=== PATIENT | female | born 2000 | race African-American/Black ===

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

== ENCOUNTER 2021-01-04 14:07 | Emergency (ER) | payer OTHER ==
[~2021-01-04] VITALS: Ht 162.6 cm; Wt 46.5 kg
[2021-01-04 14:25] VITALS: BP 112/81
[2021-01-04] MEDS ORDERED: IV NORMAL SALINE 1,000ML 1,000 ML IV ONE (16:00)
[2021-01-04] MEDS ORDERED: ONDANSETRON PF 4 MG/2 ML VIAL. IVP ONE (16:00)
[2021-01-04 16:13] LABS: ALBUMIN 4.9 g/dL (3.4-5.0); ALBUMIN/GLOBULIN RATIO 1.1 (1.0-1.7); POTASSIUM 3.4 mmol/L (3.5-5.1); TOTAL BILIRUBIN 0.7 mg/dL (0.2-1.0); TOTAL PROTEIN 9.3 g/dL (6.4-8.2)
[2021-01-04 16:14] LABS: CALCIUM 9.2 mg/dL (8.5-10.1); GFR 84.7
[2021-01-04 16:20] LABS: BASO % 0 % (0-3); EOS % 0 % (0-3); HEMATOCRIT 45.3 % (36.0-47.0); HEMOGLOBIN 15.1 g/dL (12.0-15.5); LYMPH # 1.9 x10^3/uL (1.0-4.8); LYMPH % 22 % (24-48); MEAN CORPUSCULAR HEMOGLOBIN 31 pg (25-35); MEAN CORPUSCULAR HGB CONC 33 g/dL (31-37); MEAN CORPUSCULAR VOLUME 91 fL (79-100); MONO # 0.7 x10^3/uL (0.0-1.1); MONO % 8 % (0-9); NEUT % 69 % (31-73); PLATELET COUNT 190 x10^3/uL (140-400); RED BLOOD COUNT 4.96 x10^6/uL (3.50-5.40); RED CELL DISTRIBUTION WIDTH 13.6 % (11.5-14.5); WHITE BLOOD COUNT 8.6 x10^3/uL (4.0-11.0)
--- NOTE | 2021-01-04 17:10 | PHYS DOC ---
Past History Past Medical History: No Pertinent History Past Surgical History: No Surgical History Smoking: Cigarettes Alcohol Use: Occasionally Drug Use: Marijuana General Adult EDM: Chief Complaint: NAUSEA/VOMITING/DIARRHEA HPI: HPI: Patient is a 20-year-old female who presents with nausea, vomiting, abdominal pain since Sunday. Patient states "I think I have alcohol poisoning". "I have not been able to keep any food or water down". Patient denies fever. Denies taking anything at home for the pain. Patient denies any medical history. Review of Systems: Review of Systems: Constitutional: Denies fever or chills Eyes: Denies change in visual acuity HENT: Denies nasal congestion or sore throat Respiratory: Denies cough or shortness of breath Cardiovascular: Denies chest pain or edema GI: Reports abdominal pain, nausea, vomiting, denies bloody stools or diarrhea : Denies dysuria Musculoskeletal: Denies back pain or joint pain Integument: Denies rash Neurologic: Denies headache, focal weakness or sensory changes Endocrine: Denies polyuria or polydipsia Lymphatic: Denies swollen glands Psychiatric: Denies depression or anxiety Current Medications: Current Meds: Current Medications Medications (Trade) Dose Ordered Sig/Vernell Start Time Stop Time Status Last Admin Dose Admin Ondansetron HCl (Zofran) 4 mg 1X ONCE 01/04/21 16:00 01/04/21 16:01 DC Sodium Chloride 1,000 ml @ 1,000 mls/hr 1X ONCE 01/04/21 16:00 01/04/21 16:59 DC Allergies: Allergies: Allergies Coded Allergies Type Severity Reaction Last Updated Verified No Known Drug Allergies 01/04/21 No Physical Exam: PE: Constitutional: Well developed, well nourished, no acute distress, non-toxic appearance. [] HENT: Normocephalic, atraumatic, bilateral external ears normal, oropharynx moist, no oral exudates, nose normal. [] Eyes: PERRLA, EOMI, conjunctiva normal, no discharge. [] Neck: Normal range of motion, no tenderness, supple, no stridor. [] Cardiovascular:Heart rate regular rhythm, no murmur [] Lungs & Thorax: Bilateral breath sounds clear to auscultation [] Abdomen: Bowel sounds normal, soft, no tenderness, no masses, no pulsatile masses. [] Skin: Warm, dry, no erythema, no rash. [] Back: No tenderness, no CVA tenderness. [] Extremities: No tenderness, no cyanosis, no clubbing, ROM intact, no edema. [] Neurologic: Alert and oriented X 3, normal motor function, normal sensory function, no focal deficits noted. [] Psychologic: Affect normal, judgement normal, mood normal. [] Current Patient Data: Labs: Laboratory Tests Test 01/04/21 14:30 White Blood Count 8.6 x10^3/uL (4.0-11.0) Red Blood Count 4.96 x10^6/uL (3.50-5.40) Hemoglobin 15.1 g/dL (12.0-15.5) Hematocrit 45.3 % (36.0-47.0) Mean Corpuscular Volume 91 fL (79-100) Mean Corpuscular Hemoglobin 31 pg (25-35) Mean Corpuscular Hemoglobin Concent 33 g/dL (31-37) Red Cell Distribution Width 13.6 % (11.5-14.5) Platelet Count 190 x10^3/uL (140-400) Neutrophils (%) (Auto) 69 % (31-73) Lymphocytes (%) (Auto) 22 % (24-48) L Monocytes (%) (Auto) 8 % (0-9) Eosinophils (%) (Auto) 0 % (0-3) Basophils (%) (Auto) 0 % (0-3) Neutrophils # (Auto) 6.0 x10^3uL (1.8-7.7) Lymphocytes # (Auto) 1.9 x10^3/uL (1.0-4.8) Monocytes # (Auto) 0.7 x10^3/uL (0.0-1.1) Eosinophils # (Auto) 0.0 x10^3/uL (0.0-0.7) Basophils # (Auto) 0.0 x10^3/uL (0.0-0.2) Sodium Level 140 mmol/L (136-145) Potassium Level 3.4 mmol/L (3.5-5.1) L Chloride Level 97 mmol/L (98-107) L Carbon Dioxide Level 34 mmol/L (21-32) H Anion Gap 9 (6-14) Blood Urea Nitrogen 29 mg/dL (7-20) H Creatinine 1.0 mg/dL (0.6-1.0) Estimated GFR (Cockcroft-Gault) 84.7 BUN/Creatinine Ratio 29 (6-20) H Glucose Level 108 mg/dL (70-99) H Calcium Level 9.2 mg/dL (8.5-10.1) Total Bilirubin 0.7 mg/dL (0.2-1.0) Aspartate Amino Transferase (AST) 24 U/L (15-37) Alanine Aminotransferase (ALT) 36 U/L (14-59) Alkaline Phosphatase 74 U/L (46-116) Total Protein 9.3 g/dL (6.4-8.2) H Albumin 4.9 g/dL (3.4-5.0) Albumin/Globulin Ratio 1.1 (1.0-1.7) Lipase 131 U/L (73-393) Vital Signs: Vital Signs Date Time Temp Pulse Resp B/P (MAP) Pulse Ox O2 Delivery O2 Flow Rate FiO2 01/04/21 14:25 98.0 80 16 112/81 (91) 98 EKG: EKG: [] Radiology/Procedures: Radiology/Procedures: []CT ABDOMEN+PELVIS WO History: Reason: ABDOMEN PAIN, NAUSEA, VOMITING / Spl. Instructions: / History: Technique: Noncontrast examination of the abdomen and pelvis. Coronal and sagittal reconstructions were performed. Exposure: One or more of the following individualized dose reduction techniques were utilized for this examination: 1. Automated exposure control 2. Adjustment of the mA and/or kV according to patient size 3. Use of iterative reconstruction technique. Comparison: None Findings: Lower chest: No consolidation or pleural effusion. Abdomen and pelvis: The liver, spleen, adrenal glands, pancreas and gallbladder are unremarkable. Unremarkable noncontrast appearance of the kidneys. No hydronephrosis. No renal calculi. Decompressed urinary bladder. Normal appendix. No evidence of bowel obstruction. No pathologic lymphadenopathy. No ascites. Uterus and ovaries are unremarkable. Bones: No pathologic osseous lesions. Impression: 1. No acute abdominal or pelvic pathology. Electronically signed by: Quang Benz DO (01/04/2021 5:08 PM) [facility] [place] Heart Score: Risk Factors: Risk Factors: DM, Current or recent (<one month) smoker, HTN, HLP, family history of CAD, obesity. Risk Scores: Score 0 - 3: 2.5% MACE over next 6 weeks - Discharge Home Score 4 - 6: 20.3% MACE over next 6 weeks - Admit for Clinical Observation Score 7 - 10: 72.7% MACE over next 6 weeks - Early Invasive Strategies Course & Med Decision Making: Course & Med Decision Making Pertinent Labs and Imaging studies reviewed. (See chart for details) []Patient is a 20-year-old female who presents with nausea, vomiting, abdominal pain since Sunday. Patient states "I think I have alcohol poisoning". "I have not been able to keep any food or water down". Patient denies fever. Patient denies any medical history. CT of abdomen and pelvis ordered. CT of abdomen and pelvis was negative for any acute abnormalities. All labs were within normal limits. UA was negative for infection. Urine was negative. Patient being sent home with Zofran for nausea. Patient most likely has alcohol poisoning which is causing the nausea and vomiting. Instructed to come back to the emergency room with worsening symptoms. 1. Nausea and vomiting 2. Accidental EtOH poisoning 3. Gastroenteritis Dragon Disclaimer: Dragon Disclaimer: This electronic medical record was generated, in whole or in part, using a voice recognition dictation system. Departure Departure: Impression: Primary Impression: Nausea & vomiting Qualified Codes: R11.2 - Nausea with vomiting, unspecified Referrals: WHITNEY CLINTON MD (PCP) Patient Instructions: Nausea and Vomiting, [id number] Additional Instructions: You were seen in the emergency room today for nausea and vomiting. All of your labs came back within normal limits. The CT of your abdomen was negative for any acute abnormality. I am sending you home with a prescription for Zofran which will help with nausea. Please return to the emergency room with worsening symptoms or concerns otherwise you may follow-up with your PCP if symptoms continue. Scripts Ondansetron Hcl (ZOFRAN) 4 Mg Tablet 4 MG PO TID PRN PRN for NAUSEA, #9 TAB Prov: QUIN LEUNG APRN 01/04/21 QUIN LEUNG APRN Jan 04, 2021 17:10
--- NOTE | 2021-01-04 17:11 | RAD ---
CT ABDOMEN+PELVIS WO History: Reason: ABDOMEN PAIN, NAUSEA, VOMITING / Spl. Instructions: / History: Technique: Noncontrast examination of the abdomen and pelvis. Coronal and sagittal reconstructions we re performed. Exposure: One or more of the following individualized dose reduction techniques were utilized for thi s examination: 1. Automated exposure control 2. Adjustment of the mA and/or kV according to patient size 3. Use of iterative reconstruction technique. Comparison: None Findings: Lower chest: No consolidation or pleural effusion. Abdomen and pelvis: The liver, spleen, adrenal glands, pancreas and gallbladder are unremarkable. Unr emarkable noncontrast appearance of the kidneys. No hydronephrosis. No renal calculi. Decompressed ur inary bladder. Normal appendix. No evidence of bowel obstruction. No pathologic lymphadenopathy. No ascites. Uterus and ovaries are unremarkable. Bones: No pathologic osseous lesions. Impression: 1. No acute abdominal or pelvic pathology. Electronically signed by: Quang Benz DO (01/04/2021 5:08 PM) [facility]
[2021-01-04] MEDS ORDERED: ONDA4TAB7 PO (17:20)
[2021-01-04 17:34] LABS: BACTERIA,URINE 0 /HPF (0-FEW); BILIRUBIN,URINE NEG (NEG); CLARITY,URINE HAZY; COLOR,URINE AMBER; GLUCOSE,URINE NEG (NEG); NITRITE,URINE NEG (NEG); RBC,URINE OCC /HPF (0-2); SQUAMOUS EPITHELIAL CELL,UR FEW /LPF
== END 2021-01-04 17:40 | disposition home or self-care (01) ==
LOC: ER 14:07
DX: T51.0X1A Toxic effect of ethanol, accidental (unintentional), initial encounter (principal); K52.9 Noninfective gastroenteritis and colitis, unspecified; R11.2 Nausea with vomiting, unspecified; F17.210 Nicotine dependence, cigarettes, uncomplicated; Y92.89 Other specified places as the place of occurrence of the external cause
CPT/HCPCS: 36415; 74176; 80053; 81001; 81025; 83690; 85025; 96361; 96374; 99284; J2405; J7030

== ENCOUNTER 2022-01-04 16:31 | Emergency (ER) | payer SELFPAY ==
[~2022-01-04] VITALS: Ht 162.6 cm; Wt 53.8 kg
[~2022-01-04 16:31] MED LIST: ONDA4TAB7 PO
[2022-01-04 17:23] VITALS: BP 123/76
[2022-01-04] MEDS: IV NORMAL SALINE 1,000ML 1,000 ML IV ONE (17:40)
[2022-01-04] MEDS: ONDANSETRON PF 4 MG/2 ML VIAL. IVP ONE ×2 (17:40→17:45)
[2022-01-04] MEDS ORDERED: PENI500T PO (17:47)
--- NOTE | 2022-01-04 17:47 | PHYS DOC ---
Past History Past Medical History: No Pertinent History Past Surgical History: No Surgical History Smoking: Cigarettes Alcohol Use: Occasionally Drug Use: Marijuana General Adult EDM: Chief Complaint: NAUSEA/VOMITING/DIARRHEA HPI: HPI: 21-year-old female presents with sore throat for about 2 weeks. Patient status got much worse last few days. She is having difficulty swallowing anything because of the pain. She gets tested for Covid twice a week at her work and has not tested positive. She does not believe she has had a fever at home. She did have one episode of vomiting and diarrhea today. She has no other complaints this time. Review of Systems: Review of Systems: Constitutional: Denies fever or chills Eyes: Denies change in visual acuity HENT: Sore throat Respiratory: Denies cough or shortness of breath Cardiovascular: Denies chest pain or edema GI: nausea, vomiting. Denies abdominal pain, bloody stools or diarrhea : Denies dysuria Musculoskeletal: Denies back pain or joint pain Integument: Denies rash Neurologic: Denies headache, focal weakness or sensory changes Endocrine: Denies polyuria or polydipsia Lymphatic: Denies swollen glands Psychiatric: Denies depression or anxiety Current Medications: Current Meds: Current Medications Medications (Trade) Dose Ordered Sig/Vernell Start Time Stop Time Status Last Admin Dose Admin Ondansetron HCl (Zofran) 4 mg 1X ONCE 01/04/22 17:30 01/04/22 17:31 DC Sodium Chloride 1,000 ml @ 1,000 mls/hr 1X ONCE 01/04/22 17:30 01/04/22 18:29 Allergies: Allergies: Allergies Coded Allergies Type Severity Reaction Last Updated Verified No Known Drug Allergies 01/04/22 No Physical Exam: PE: Constitutional: Well developed, well nourished, no acute distress, non-toxic appearance. [] HENT: Normocephalic, atraumatic, bilateral external ears normal, oropharynx erythematous with extremely swollen tonsils bilaterally, nose normal. [] Eyes: PERRLA, EOMI, conjunctiva normal, no discharge. [] Neck: Normal range of motion, no tenderness, supple, no stridor. [] Cardiovascular: Heart rate 110, regular rhythm, no murmur [] Lungs & Thorax: Bilateral breath sounds clear to auscultation [] Abdomen: Bowel sounds normal, soft, no tenderness, no masses, no pulsatile masses. [] Skin: Warm, dry, no erythema, no rash. [] Back: No tenderness, no CVA tenderness. [] Extremities: No tenderness, no cyanosis, no clubbing, ROM intact, no edema. [] Neurologic: Alert and oriented X 3, normal motor function, normal sensory function, no focal deficits noted. [] Psychologic: Affect normal, judgement normal, mood normal. [] Current Patient Data: Vital Signs: Vital Signs Date Time Temp Pulse Resp B/P (MAP) Pulse Ox O2 Delivery O2 Flow Rate FiO2 01/04/22 17:23 98.7 114 16 123/76 (92) 100 Room Air EKG: EKG: [] Radiology/Procedures: Radiology/Procedures: [] Heart Score: C/O Chest Pain: N/A Risk Factors: Risk Factors: DM, Current or recent (<one month) smoker, HTN, HLP, family history of CAD, obesity. Risk Scores: Score 0 - 3: 2.5% MACE over next 6 weeks - Discharge Home Score 4 - 6: 20.3% MACE over next 6 weeks - Admit for Clinical Observation Score 7 - 10: 72.7% MACE over next 6 weeks - Early Invasive Strategies Course & Med Decision Making: Course & Med Decision Making Pertinent Labs and Imaging studies reviewed. (See chart for details) The patient's exam is consistent with strep pharyngitis. I will treat her with IV Decadron, pain medication, and 10 days of penicillin V. [] Dragon Disclaimer: Dragon Disclaimer: This electronic medical record was generated, in whole or in part, using a voice recognition dictation system. Departure Departure: Impression: Primary Impression: Strep pharyngitis Disposition: HOME / SELF CARE / HOMELESS Condition: STABLE Referrals: PCP,NO (PCP) Patient Instructions: Strep Throat, [id number] Scripts Penicillin V Potassium (PENICILLIN V POTASSIUM) 500 Mg Tablet 1 TAB PO BID for strep throat, #20 TAB Prov: TARAN OLMOS DO 01/04/22 TARAN OLMOS DO Jan 04, 2022 17:47
[2022-01-04] MEDS: MORPHINE SULFATE 2 MG/ML DISP.SYRIN. IV ONE (18:04)
[2022-01-04] MEDS: PENICILLIN V K 250 MG TABLET. PO ONE (18:04)
[2022-01-04] MEDS: DEXAMETHASONE SOD PHOS 10 MG/ML VIAL. IV ONE (18:05)
[2022-01-04 18:24] LABS: INFLUENZA A PATIENT NEGATIVE (NEGATIVE); INFLUENZA B PATIENT NEGATIVE (NEGATIVE)
[2022-01-04 18:33] LABS: BASO % 0 % (0-3); CALCIUM 8.4 mg/dL (8.5-10.1); CREATININE 0.7 mg/dL (0.6-1.0); EOS % 0 % (0-3); GFR 126.6; HEMOGLOBIN 12.6 g/dL (12.0-15.5); LYMPH # 1.5 x10^3/uL (1.0-4.8); LYMPH % 15 % (24-48); MEAN CORPUSCULAR HEMOGLOBIN 30 pg (25-35); MEAN CORPUSCULAR HGB CONC 34 g/dL (31-37); MEAN CORPUSCULAR VOLUME 88 fL (79-100); MONO # 1.3 x10^3/uL (0.0-1.1); MONO % 12 % (0-9); NEUT # 7.4 x10^3uL (1.8-7.7); NEUT % 72 % (31-73); PLATELET COUNT 154 x10^3/uL (140-400); POTASSIUM 3.6 mmol/L (3.5-5.1); WHITE BLOOD COUNT 10.2 x10^3/uL (4.0-11.0)
[2022-01-04 18:36] LABS: ALBUMIN 3.5 g/dL (3.4-5.0); ALBUMIN/GLOBULIN RATIO 0.8 (1.0-1.7); TOTAL BILIRUBIN 0.4 mg/dL (0.2-1.0)
== END 2022-01-04 18:52 | disposition home or self-care (01) ==
LOC: ER 16:31
DX: J02.0 Streptococcal pharyngitis (principal); F17.210 Nicotine dependence, cigarettes, uncomplicated; Z20.822 Contact with and (suspected) exposure to COVID-19
CPT/HCPCS: 36415; 80053; 85025; 87428; 87880; 96361; 96374; 96375; 99284; J1100; J2270; J2405; J7030; 87070

== ENCOUNTER 2022-02-07 21:26 | Emergency (ER) | payer OTHER ==
[~2022-02-07] VITALS: Ht 162.6 cm; Wt 56.0 kg
[~2022-02-07 21:26] MED LIST changes: +PENI500T PO
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
[2022-02-07] MEDS ORDERED: FAMOTIDINE 20 MG/2 ML VIAL IVP ONE (22:00)
[2022-02-07] MEDS ORDERED: IV RINGERS SOLUTION,LACTATED 1,000 ML IV SCH (22:00)
[2022-02-07] MEDS ORDERED: ONDANSETRON PF 4 MG/2 ML VIAL. IVP ONE (22:00)
[2022-02-07 22:16] LABS: BARBITURATES NEG (NEG); BENZODIAZEPINES NEG (NEG); CANNABINOIDS POS (NEG); COCAINE NEG (NEG); METHADONE NEG (NEG); OPIATES NEG (NEG); PHENCYCLIDINE NEG (NEG)
[2022-02-07 22:17] LABS: AMPHETAMINE/METHAMPHETAMINE NEG (NEG)
[2022-02-07 22:20] LABS: BACTERIA,URINE FEW /HPF (0-FEW); CLARITY,URINE CLEAR; COLOR,URINE YELLOW; GLUCOSE,URINE NEG (NEG); NITRITE,URINE NEG (NEG); RBC,URINE OCC /HPF (0-2); SQUAMOUS EPITHELIAL CELL,UR MANY /LPF; UROBILINOGEN,URINE 0.2 mg/dL (0.2 mg/dL)
[2022-02-07] MEDS ORDERED: CEPHALEXIN 250 MG CAPSULE PO ONE (22:45)
--- NOTE | 2022-02-08 00:11 | RAD ---
US OB <14 WKS History: . Cramps. Comparison: CT abdomen and pelvis 01/04/2021. Technique: Sonographic examination of the pelvis was performed with transabdominal technique. Findings: The uterus is normal in size and echogenicity, measuring 8.2 x 5.4 x 5.9 cm. The uterus contains a single gestational sac with normal shape. A pole is identified with crown -rump length measuring 2.10 cm, corresponding to a gestational age of 8w5d. There is no evidence of perigestational hemorrhage. The heart rate measures 173.00 (beats per minute). The right ovary is normal in size and echogenicity, measuring 2.8 x 1.5 x 1.4 cm. The left ovary is nonvisualized due to transabdominal technique only and obscuring bowel gas. There is no evidence of adnexal mass or free fluid. Impression: 1. No evidence of acute pelvic pathology. 2. Single live intrauterine gestation with crown-rump length corresponding to a gestational age of 8 w5d. Electronically signed by: Darren Melo MD (02/08/2022 12:09 AM) [facility]
[2022-02-08] MEDS ORDERED: CEPH500C PO (01:01)
[2022-02-08 01:11] VITALS: BP 110/49
== END 2022-02-08 01:11 | disposition home or self-care (01) ==
LOC: ER 21:26
DX: O23.41 Unspecified infection of urinary tract in pregnancy, first trimester (principal); N39.0 Urinary tract infection, site not specified; O99.331 Smoking (tobacco) complicating pregnancy, first trimester; Z3A.08 8 weeks gestation of pregnancy
CPT/HCPCS: 36415; 76801; 80307; 81001; 81025; 87086; 87491; 87591; 99284